=== PATIENT | female | born 1965 ===

== ENCOUNTER 2017-06-07 14:13 | Outpatient (CLI) | payer BC ==
--- NOTE | 2017-06-09 08:57 | Mammography Report ---
BILATERAL DIGITAL SCREENING MAMMOGRAM with CAD: 06/07/17 14:13:00 CLINICAL: Routine screening. COMPARISON:06/21/13 and 08/21/12 FINDINGS: The breasts are heterogeneously dense, which may obscure small masses. Left outer biopsy clip.A right upper asymmetry on the MLO view requires additional imaging.No architectural distortion or suspicious calcifications. IMPRESSION: Right asymmetry requiring further workup. BI-RADS CATEGORY: 0 -- Additional Imaging Evaluation Required RECOMMENDATION: Recall for right exaggerated CC and spot compression MLO views and right breast ultrasound if needed. ACR BI-RADS MAMMOGRAPHIC CODES: 0 = Needs additional imaging evaluation; 1 = Negative; 2 = Benign; 3 = Probably benign; 4 = Suspicious; 5 = Malignant; 6 = Known biopsy-proven malignancy COMMENT: 1. Dense breast tissue, i.e., adenosis, fibrocystic changes, etc., may obscure an underlying neoplasm. 2. Approximately 10% of cancers are not detected with mammography. 3. A negative mammography report should not delay biopsy if a clinically suspicious mass is present. COMMENT: Patient follow-up letters are generated via our [employer] application.
== END 2017-06-07 14:14 | disposition home or self-care (01) ==
LOC: SPVWC 14:13
PROVIDERS: ATTEND Obstetrics & Gynecology
DX: Z12.31 Encounter for screening mammogram for malignant neoplasm of breast (principal)
CPT/HCPCS: 77067; G0202

== ENCOUNTER 2017-06-28 10:41 | Outpatient (CLI) | payer BC ==
--- NOTE | 2017-06-28 12:58 | Mammography Report ---
RIGHT DIGITAL DIAGNOSTIC MAMMOGRAM : 06/28/17 10:41:00 CLINICAL: Recalled for asymmetry. COMPARISON:06/07/17 screening FINDINGS: ML, exaggerated CC and spot compression MLO views were performed. Near complete effacement of asymmetry on the spot view. The other views are negative. IMPRESSION: Negative Mammogram. BI-RADS CATEGORY: 1 -- Negative RECOMMENDATION: Routine mammographic screening in one year. ACR BI-RADS MAMMOGRAPHIC CODES: 0 = Needs additional imaging evaluation; 1 = Negative; 2 = Benign; 3 = Probably benign; 4 = Suspicious; 5 = Malignant; 6 = Known biopsy-proven malignancy COMMENT: 1. Dense breast tissue, i.e., adenosis, fibrocystic changes, etc., may obscure an underlying neoplasm. 2. Approximately 10% of cancers are not detected with mammography. 3. A negative mammography report should not delay biopsy if a clinically suspicious mass is present. COMMENT: Patient follow-up letters are generated via our [employer] application.
== END 2017-06-28 10:42 | disposition home or self-care (01) ==
LOC: SPVWC 10:41
PROVIDERS: ATTEND Obstetrics & Gynecology
DX: R92.8 Other abnormal and inconclusive findings on diagnostic imaging of breast (principal)
CPT/HCPCS: G0206-RT

== ENCOUNTER 2021-06-24 08:44 | Outpatient (CLI) | payer OTHER ==
--- NOTE | 2021-06-24 14:15 | Mammography Report ---
DIGITAL SCREENING MAMMOGRAM WITH CAD, 06/24/2021 CLINICAL INFORMATION / INDICATION: Routine screening mammography. SCREENING MAMMO Z12.31 TECHNIQUE: Digital bilateral 2D mammography was obtained in the craniocaudal and mediolateral obliqu e projections. This examination was interpreted with the benefit of Computer-Aided Detection analysis . COMPARISON: 06/07/2017 FINDINGS: Breast Density: There are scattered areas of fibroglandular density. No dominant mass, suspicious calcifications, or architectural distortion in either breast. IMPRESSION: No mammographic evidence of malignancy. Follow up recommendation: Routine yearly BI-RADS Category 1: Negative. A "normal" or negative report should not discourage follow up or biopsy of a clinically significant f inding. A written summary of these findings will be mailed to the patient. The patient will be entered into a mammography reporting system which will generate a reminder letter for the patient's next appointmen t at the appropriate interval. The [employer] recommends yearly mammograms starting at age 40 and continuing as l isaias as a woman is in good health. Breast MRI is recommended for women with an approximate 20-25% or greater lifetime risk of breast cancer, including women with a strong family history of breast or ova rafael cancer or who have been treated for Hodgkin's disease. Signer Name: Jeffrey Abernathy MD Signed: 06/24/2021 2:10 PM Workstation Name: [email or web address]
== END 2021-06-24 08:45 | disposition home or self-care (01) ==
LOC: SPVWC 08:44
PROVIDERS: ATTEND Obstetrics & Gynecology
DX: Z12.31 Encounter for screening mammogram for malignant neoplasm of breast (principal)
CPT/HCPCS: 77067